=== PATIENT | female | born 1985 | race Caucasian/White ===

== ENCOUNTER 2017-09-16 17:40 | Emergency (ER) | payer MEDICARE, OTHER ==
[2017-09-16 19:19] LABS: Appearance CLEAR (CLEAR); Bilirubin NEGATIVE (NEGATIVE); Blood NEGATIVE Ery/ul (0-5); Glucose NEGATIVE (NEGATIVE); Ketones NEGATIVE (NEGATIVE); Leukocyte Esterase TRACE (NEGATIVE); Nitrite NEGATIVE (NEGATIVE); Protein,Urine Dip NEGATIVE (Negative); Urobilinogen NORMAL mg/dL (0-1)
[2017-09-16 19:20] LABS: Epithelial Cells FEW /HPF (FEW); WBC 0-2 /HPF (0-5)
[2017-09-16] MEDS ORDERED: Hydromorphone 1 mg/ml Ampule IM ONE (19:50)
[2017-09-16] MEDS ORDERED: Phenergan 25 MG INJ IM ONE (19:50)
[2017-09-16] MEDS ORDERED: DILAUDID 2 MG INJECTION ONE (19:54)
[2017-09-16] MEDS ORDERED: Phenergan 25 MG INJ ONE (19:54)
--- NOTE | 2017-09-16 19:58 | ERPHSYRPT ---
- History of Present Illness Time Seen by Provider: 09/16/17 19:42 Source: patient Exam Limitations: no limitations Patient Subjective Stated Complaint: here for pain to lower back since last night , no injury, no fever Triage Nursing Assessment: pt alert, walked in, resp easy, skin w/d/p Physician History: SINCE YESTERDAY AFTER TAKING DICLOFENAC FOR THE FIRST TIME PT STARTED WITH DULL LOW BACK PAIN. PT DENIES FEVER, COUGH, CHEST PAIN, ABDOMINAL PAIN. Hx Influenza Vaccination/Date Given: No Hx Pneumococcal Vaccination/Date Given: No Immunizations Up to Date: Yes - Review of Systems Constitutional: No Fever Respiratory: No Cough Cardiac: No Chest Pain Abdominal/Gastrointestinal: No Abdominal Pain Musculoskeletal: Back Pain All Other Systems: Reviewed and Negative - Past Medical History Pertinent Past Medical History: Yes Musculoskeletal History: Arthritis Psycho-Social History: Depression - Past Surgical History Past Surgical History: No - Social History Smoking Status: Current every day smoker Exposure to second hand smoke: Yes Drug Use: none Patient Lives Alone: No - Female History Hx Last Menstrual Period: week ago Hx Now: No - Nursing Vital Signs Nursing Vital Signs: Initial Vital Signs Temperature 98.1 F 09/16/17 18:13 Pulse Rate 73 09/16/17 18:13 Respiratory Rate 16 09/16/17 18:13 Blood Pressure 165/121 09/16/17 18:13 O2 Sat by Pulse Oximetry 99 09/16/17 18:13 Pain Scale Pain Intensity [Back] 0 Pain Intensity 8 - Physical Exam General Appearance: alert Eye Exam: PERRL/EOMI Ears, Nose, Throat Exam: TMs normal, moist mucous membranes Neck Exam: normal inspection Respiratory Exam: lungs clear Cardiovascular Exam: normal heart sounds Gastrointestinal/Abdomen Exam: soft, normal bowel sounds Back Exam: other (MILD PARAVERTEBRAL LUMBAR TENDERNESS) Extremity Exam: normal inspection, normal range of motion, No pedal edema Neurologic Exam: alert, cooperative, normal mood/affect, sensation nml, No motor deficits, No motor weakness Skin Exam: warm, dry SpO2 Interpretation: normal SpO2: 99 Oxygen Delivery: Room Air - Course Nursing assessment & vital signs reviewed: Yes Ordered Tests: Active Orders 24 hr Category Date Time Status Clean Catch Urine Specimen STAT Care 09/16/17 18:48 Active UA W/ MICROSCOPIC Stat Lab 09/16/17 19:00 Completed Medication Summary Generic Name Dose Route Start Last Admin Trade Name Freq PRN Reason Stop Dose Admin Hydromorphone HCl 2 mg 09/16/17 19:50 Hydromorphone 1 Mg/Ml Ampule IM 09/16/17 19:51 STAT ONE Promethazine HCl 25 mg 09/16/17 19:50 Phenergan 25 Mg Inj IM 09/16/17 19:51 STAT ONE Lab/Rad Data: Laboratory Results 09/16/17 Range/Units 19:00 Ur Collection Type CCMS Urine Color YELLOW (YELLOW) Urine Appearance CLEAR (CLEAR) Urine pH 8.0 (5-6) Ur Specific [place] 1.010 (1.005-1.025) Urine Protein NEGATIVE (Negative) Urine Ketones NEGATIVE (NEGATIVE) Urine Blood NEGATIVE (0-5) Paulie/ul Urine Nitrite NEGATIVE (NEGATIVE) Urine Bilirubin NEGATIVE (NEGATIVE) Urine Urobilinogen NORMAL (0-1) mg/dL Ur Leukocyte Esterase TRACE (NEGATIVE) Urine Microscopic WBC 0-2 (0-5) /HPF Ur Epithelial Cells FEW (FEW) /HPF Urine Glucose NEGATIVE (NEGATIVE) mg/dL Specimen Received [id number] - Departure Time of Disposition: 20:03 Departure Disposition: Home Clinical Impression: LOW BACK PAIN Condition: Stable Critical Care Time: No Referrals: FANI LOBO [Primary Care Provider] - Instructions: Low Back Pain (DC) Additional Instructions: FOLLOW UP WITH PRIVATE DOCTOR TOMORROW. STOP DICLOFENAC. Prescriptions: Cyclobenzaprine HCl [Flexeril] 10 mg PO TID #20 tablet
[2017-09-16 20:21] VITALS: BP 157/87; PULSE 75; O2SAT 98
== END 2017-09-16 20:21 | disposition home or self-care (01) ==
LOC: ED 17:40
DX: M54.5 Low back pain (principal); M19.90 Unspecified osteoarthritis, unspecified site; F32.9 Major depressive disorder, single episode, unspecified; Z72.0 Tobacco use
CPT/HCPCS: 81000; 96372; 99284; J1170; J2550